=== PATIENT | male | born 1950 | race Caucasian/White ===

== ENCOUNTER 2016-12-28 13:05 | Emergency (ER) | payer MEDICARE, OTHER ==
[~2016-12-28] VITALS: Wt 78.9 kg
[~2016-12-28 13:05] MED LIST: ASPI-664 PO; BENA20TA48 PO; ERYTOPOI LEFT EYE; MTF1000T PO; QUET400T PO
[2016-12-28] MEDS ORDERED: SODI126M NASAL (15:00)
[2016-12-28] MEDS ORDERED: ALBU18HF INHALATION (15:00)
[2016-12-28] MEDS ORDERED: GUAI473L22 PO (15:00)
--- NOTE | 2016-12-28 15:14 | ERD ---
ER Documentation Chief Complaint Date/Time DATE: 12/28/16 TIME: 15:02 Chief Complaint COUGH X 1 WEEK HPI 66-year-old male complaining of cough 1 week. Patient states the cough is productive at times, was clear to yellow sputum. He also has runny nose. Denies fever or chills. Denies shortness of breath. Denies abdominal pain, vomiting, or diarrhea. Denies headache or neck pain. Patient has history of hypertension, diabetes, and schizophrenia. Is taking medications for all of them. Patient also reports an expected weight loss of 30 pounds in the last 2 weeks. ROS All systems reviewed and are negative except as per history of present illness. Medications Home Meds Active Scripts Guaifenesin-Codeine Phosphate* (Guaifenesin* AC Cough Syrup) 473 Ml Liquid, 5 ML PO Q4H Y for COUGH, #120 ML Prov:CHEYENNE CRUZ. DIE REPAIR MACHINIST 12/28/16 Sodium Chloride (Saline Nasal Mist) 126 Ml Mist, 2 SPRAY NASAL Q2H Y for NASAL CONGESTION, #1 BOTTLE Prov:CHEYENNE CRUZ. DIE REPAIR MACHINIST 12/28/16 Albuterol Sulfate* (Ventolin HFA*) 18 Gm Hfa.aer.ad, 2 PUFF INHALATION Q4H, #1 INHALER Prov:CHEYENNE CRUZ. DIE REPAIR MACHINIST 12/28/16 Erythromycin* (Erythromycin* Ophthalmic) 1 Applic Oint, 1 APPLIC LEFT EYE TID, # 1 TUB Prov:PHUC CLARK DO 08/03/16 Metformin* (Glucophage*) 1,000 Mg Tablet, 1000 MG PO BID, #60 TAB Prov:MARLON FRIED MD 08/13/15 Reported Medications Benazepril Hcl* (Benazepril Hcl*) 20 Mg Tablet, 20 MG PO DAILY, #30 TAB 02/28/16 Aspirin (Low Dose Aspirin) 81 Mg Tablet.dr, 81 MG PO DAILY 12/27/14 Quetiapine Fumarate* (Seroquel*) 400 Mg Tablet, 800 MG PO HS, TAB 07/27/14 Allergies Allergies: Coded Allergies: No Known Allergy (Unverified , 08/03/16) PMhx/Soc History of Surgery: Yes (left hip replacement) Anesthesia Reaction: No Hx Neurological Disorder: No Hx Respiratory Disorders: No Hx Cardiac Disorders: Yes (HTN, Hyperlidemia) Hx Psychiatric Problems: Yes (Schozoprenia) Hx Miscellaneous Medical Probl: No Hx Alcohol Use: No Hx Substance Use: No Hx Tobacco Use: No Smoking Status: Never smoker Physical Exam Vitals Vital Signs Date Time Temp Pulse Resp B/P Pulse Ox O2 Delivery O2 Flow Rate FiO2 12/28/16 13:12 98.1 89 18 160/90 99 Physical Exam General: Well-developed, well-nourished, conscious and coherent, in no distress Skin: Warm and dry without rash, good texture and turgor Head: Normocephalic without evidence of trauma Eyes: Sclera and conjunctivae normal; pupils equal, round, and reactive to light; extraocular movements are intact Ears: Canals are patent. Tympanic membranes are clear Nose/Face: Erythematous and swollen without rhinorrhea Mouth/throat: Mucous membranes are moist. Posterior pharynx clear without erythema or exudates Neck: Supple without meningismus or adenopathy. Carotids are equal. Trachea midline. No bruits or JVD Chest: Normal AP diameter. Good expansion without retractions. Nontender. Lungs are clear to auscultate bilaterally with good tidal volume. Patient observed to have nonproductive cough, and cough upon deep inspiration. Heart: Regular rate and rhythm. No murmur, rub, or gallops heard Abdomen: Soft and nontender without masses, guarding, or rebound. Bowel sounds are active. No hepatosplenomegaly Neuro: Alert and oriented 4, GCS 15. Cranial nerves II-XII intact. Motor and sensory exams nonfocal. Moves all extremities. Speech clear. Gait normal Procedures/MDM Well-appearing 66-year-old male presented to ED with cough 1 week. Patient is afebrile, in no respiratory distress. Lungs are clear to auscultate. I doubt that patient has pneumonia. Patient's symptoms are consistent with viral bronchitis. It is unclear the cause of patient's and expected weight loss at this time. However, I do not feel the patient has a emergent condition. I have patient follow-up with his PCP for further evaluation. Patient appears well, stable for discharge and outpatient management. Medical decision making shared with patient and family. Education provided to patient and family. Patient and family expressed understanding of the plan. Medications on discharge: Albuterol HFA, saline nasal spray, guaifenesin with codeine. Follow-up: Primary care provider in 2-3 days or return to ED if worse. Departure Diagnosis: Primary Impression: Viral bronchitis Condition: Stable Patient Instructions: Bronchitis, No Antibiotic (Adult) Additional Instructions: Call your primary care doctor TOMORROW for an appointment during the next 2-3 days.See the doctor sooner or return here if your condition worsens before your appointment time. CHEYENNE CRUZ NP December 28, 2016 15:12
== END 2016-12-28 15:10 | disposition home or self-care (01) ==
LOC: FTE 13:05
DX: J20.8 Acute bronchitis due to other specified organisms (principal); I10 Essential (primary) hypertension; E11.9 Type 2 diabetes mellitus without complications; Z79.84 Long term (current) use of oral hypoglycemic drugs; Z79.82 Long term (current) use of aspirin; Z96.642 Presence of left artificial hip joint
CPT/HCPCS: 99283

== ENCOUNTER 2017-04-06 18:23 | Emergency (ER) | END 2017-04-06 19:33 | disposition home or self-care (01) | DX: I10 Essential (primary) hypertension (principal); J44.9 Chronic obstructive pulmonary disease, unspecified; Z76.0 Encounter for issue of repeat prescription; Z79.84 Long term (current) use of oral hypoglycemic drugs; Z79.82 Long term (current) use of aspirin; Z96.642 Presence of left artificial hip joint ==

== ENCOUNTER 2017-04-29 14:56 | Emergency (ER) | payer MEDICARE, OTHER ==
[~2017-04-29] VITALS: Ht 157.5 cm; Wt 89.0 kg
[~2017-04-29 14:56] MED LIST changes: +ALBU18HF INHALATION; +GUAI473L22 PO; +SODI126M NASAL
[2017-04-29 15:02] VITALS: Ht 157.5 cm; Wt 89.0 kg
[2017-04-30] MEDS ORDERED: QUET400T PO (10:42)
== END 2017-04-29 15:26 | disposition left against medical advice (07) ==
LOC: FTE 14:56
DX: Z53.21 Procedure and treatment not carried out due to patient leaving prior to being seen by health care provider (principal)

== ENCOUNTER 2017-04-29 18:05 | Emergency (ER) | payer SELFPAY ==
[~2017-04-29] VITALS: Ht 177.8 cm; Wt 89.0 kg
[2017-04-29 18:07] VITALS: Ht 177.8 cm; Wt 89.0 kg
[2017-04-30] MEDS ORDERED: QUET400T PO (10:42)
== END 2017-04-29 21:27 | disposition left against medical advice (07) ==
LOC: E/R 18:05
DX: Z53.21 Procedure and treatment not carried out due to patient leaving prior to being seen by health care provider (principal)

== ENCOUNTER 2017-04-30 09:36 | Emergency (ER) | payer MEDICARE, OTHER ==
[~2017-04-30] VITALS: Ht 180.3 cm; Wt 78.6 kg
[2017-04-30 09:39] VITALS: Ht 180.3 cm; Wt 78.6 kg
[2017-04-30] MEDS ORDERED: QUET400T PO (10:42)
--- NOTE | 2017-04-30 11:10 | ERD ---
ER Documentation Chief Complaint Date/Time DATE: 04/30/17 TIME: 11:08 Chief Complaint pt requesting medication refill HPI 66-year-old male with history of schizophrenia is requesting medication refill for Seroquel, 400 mg twice daily for 1 month. Patient states that his primary doctor is out of town and was not able to get a prescription refill and he ran out yesterday. He denies SI or HI. He denies any medical complaints. ROS All systems reviewed and are negative except as per history of present illness. Medications Home Meds Active Scripts Quetiapine Fumarate* (Seroquel*) 400 Mg Tablet, 400 MG PO BID, #60 TAB Prov:JEAN CARLOS BROOKE PA-C 04/30/17 Quetiapine Fumarate* (Seroquel*) 400 Mg Tablet, 400 MG PO HS, #60 TAB Prov:ALBERTO WASHINGTON MD 04/06/17 Guaifenesin-Codeine Phosphate* (Guaifenesin* AC Cough Syrup) 473 Ml Liquid, 5 ML PO Q4H Y for COUGH, #120 ML Prov:CHEYENNE CRUZ. LAUNDRY OPERATOR FINISHING 12/28/16 Sodium Chloride (Saline Nasal Mist) 126 Ml Mist, 2 SPRAY NASAL Q2H Y for NASAL CONGESTION, #1 BOTTLE Prov:CHEYENNE CRUZ. LAUNDRY OPERATOR FINISHING 12/28/16 Albuterol Sulfate* (Ventolin HFA*) 18 Gm Hfa.aer.ad, 2 PUFF INHALATION Q4H, #1 INHALER Prov:CHEYENNE CRUZ. LAUNDRY OPERATOR FINISHING 12/28/16 Erythromycin* (Erythromycin* Ophthalmic) 1 Applic Oint, 1 APPLIC LEFT EYE TID, # 1 TUB Prov:PHUC CLARK DO 08/03/16 Metformin* (Glucophage*) 1,000 Mg Tablet, 1000 MG PO BID, #60 TAB Prov:MARLON FRIED MD 08/13/15 Reported Medications Benazepril Hcl* (Benazepril Hcl*) 20 Mg Tablet, 20 MG PO DAILY, #30 TAB 02/28/16 Aspirin (Low Dose Aspirin) 81 Mg Tablet.dr, 81 MG PO DAILY 12/27/14 Quetiapine Fumarate* (Seroquel*) 400 Mg Tablet, 800 MG PO HS, TAB 07/27/14 Allergies Allergies: Coded Allergies: No Known Allergy (Unverified , 04/30/17) PMhx/Soc History of Surgery: Yes (left hip replacement) Anesthesia Reaction: No Hx Neurological Disorder: No Hx Respiratory Disorders: No Hx Cardiac Disorders: Yes (HTN, Hyperlidemia) Hx Psychiatric Problems: Yes (Schizoprenia) Hx Miscellaneous Medical Probl: No Hx Alcohol Use: No Hx Substance Use: No Hx Tobacco Use: No Physical Exam Vitals Vital Signs Date Time Temp Pulse Resp B/P Pulse Ox O2 Delivery O2 Flow Rate FiO2 04/30/17 09:39 97.8 90 18 177/99 98 Physical Exam General: Well-developed, well-nourished. The patient appears in no acute distress. HEENT: Head is normocephalic, atraumatic. No scleral icterus. Neck: Supple. Nontender. Lungs: Clear to auscultation. Normal air movement. Heart: Regular rate and rhythm. S1 and S2 are normal. No murmurs, gallops, or rubs. Abdomen: Nondistended. Extremities: No clubbing or cyanosis. Moving extremities x 4. No weakness. Neurologic: Alert and oriented 3. No focal deficits. Normal speech and gait. Skin: Normal turgor. No rash or lesions. Procedures/MDM 66-year-old male comes in for medication refill for Seroquel, patient is taking this history of schizophrenia and he runs out today. He will be given 1 month refill until he sees his primary care doctor. He does not warrant any emergent psychiatric evaluation or hospitalization. There are no signs of acute psychosis or danger to others or himself. Patient's blood pressure was elevated (>120/80) but appears stable without evidence of hypertension emergency or urgency. The patient was counseled about the risks of hypertension and urged to pursue outpatient monitoring and therapy within a week with their primary care physician. Departure Diagnosis: Primary Impression: Schizophrenia Additional Impression: Encounter for medication refill Condition: Good Patient Instructions: Treating Schizophrenia JEAN CARLOS BROOKE PA-C Apr 30, 2017 11:10
== END 2017-04-30 10:55 | disposition home or self-care (01) ==
LOC: FTE 09:36
DX: F20.9 Schizophrenia, unspecified (principal); I10 Essential (primary) hypertension; Z79.82 Long term (current) use of aspirin; Z79.84 Long term (current) use of oral hypoglycemic drugs; Z96.642 Presence of left artificial hip joint
CPT/HCPCS: 99281